=== PATIENT | male | born 1995 | race Caucasian/White ===

== ENCOUNTER 2018-10-05 21:05 | Emergency (ER) | payer SELFPAY ==
[~2018-10-05] VITALS: Ht 175.3 cm; Wt 67.1 kg
[2018-10-05 21:10] VITALS: BP 152/95
--- NOTE | 2018-10-05 21:10 | NUR ---
ED Nurse Note: Patient walked into ED after ingesting a marijuana infused brownie about 90 minutes ago. patient states that she is "haev an out of body eperience". at time of arrivaal patient reports being dizzy and is crying. patient has vomitted aproximately 300 mL of undigested food.
--- NOTE | 2018-10-05 21:12 | Emergency Room Report ---
History of Present Illness General Chief Complaint: General Complaint Source: Patient Present Illness HPI Is a 23-year-old male with no past medical history. He presents with chief complaint of feeling anxious and he ate edible marijuana brownie. He fell anxious. Hyperventilating and felt dizzy. Said this never happened to him before. No suicidal thought homicidal thought. Said his mind is racing. Called 911. No other complaint. Allergies: Coded Allergies: No Known Allergies (Unverified , 10/05/18) Patient History Past Medical History: see triage record, old chart reviewed Past Surgical History: none Pertinent Family History: none Social History: Denies: smoking Immunizations: other Reviewed Nursing Documentation: PMH: Agreed; PSxH: Agreed Nursing Documentation-PMH History Of Psychiatric Problem: Yes - ADD Review of Systems Eye: Denies: eye pain, blurred vision ENT: Denies: ear pain, nose congestion, throat swelling Respiratory: Denies: cough, shortness of breath Cardiovascular: Denies: chest pain, palpitations Gastrointestinal: Denies: abdominal pain, diarrhea, nausea, vomiting Musculoskeletal: Denies: back pain, joint pain Skin: Denies: rash Psychiatric: Reports: anxiety Neurological: Denies: headache, numbness Endocrine: Denies: increased thirst, increased urine Hematologic/Lymphatic: Denies: easy bruising All Other Systems: negative except mentioned in HPI Physical Exam Vital Signs Date Time Temp Pulse Resp B/P (MAP) Pulse Ox O2 Delivery O2 Flow Rate FiO2 10/05/18 21:01 Room Air vital signs unremarkable Sp02 EP Interpretation: reviewed, normal General Appearance: well appearing, no apparent distress, alert Head: normocephalic, atraumatic Eyes: bilateral eye PERRL, bilateral eye EOMI ENT: hearing grossly normal, normal pharynx Neck: full range of motion, supple, no meningismus Respiratory: chest non-tender, lungs clear, normal breath sounds Cardiovascular #1: regular rate, rhythm, no murmur Gastrointestinal: normal bowel sounds, non tender, no mass, no organomegaly, no bruit, non-distended Musculoskeletal: back normal, gait/station normal, normal range of motion Neurologic: alert, oriented x3 Psychiatric: anxious Skin: warm/dry Medical Decision Making Diagnostic Impression: Primary Impression: Cannabis-induced anxiety disorder Additional Impression: Panic attack ER Course Patient with anxiety/panic attack induced by cannabis. No evidence of any suicidal thoughts homicidal thought. Better after Ativan. We'll discharge home. Last Vital Signs Date Time Temp Pulse Resp B/P (MAP) Pulse Ox O2 Delivery O2 Flow Rate FiO2 10/05/18 21:01 Room Air Status: improved Disposition: HOME, SELF-CARE Condition: Stable Additional Instructions: Follow-up with your doctor in 7 days. Abstain from marijuana. Return if worse. Tim Ross MD Oct 05, 2018 21:12
[2018-10-05] MEDS ORDERED: LORazepam 1mg tab ORAL ONE (21:15)
[2018-10-05 22:45] VITALS: BP 137/88
--- NOTE | 2018-10-05 22:45 | NUR ---
ER DISCHARGE NOTE: Patient is cleared to be discharged per ERMD, pt is aox4, on room air, with stable vital signs. pt was given dc and prescription instructions, pt was able to verbalize understanding, pt id band removed without complications. pt is able to ambulate with steady gait. pt took all belongings.
== END 2018-10-05 22:45 | disposition home or self-care (01) ==
LOC: EDBD 21:05 → EMR 21:17
DX: F12.180 Cannabis abuse with cannabis-induced anxiety disorder (principal); F41.0 Panic disorder [episodic paroxysmal anxiety]
CPT/HCPCS: 99282